=== PATIENT | male | born 1980 | race American Indian/Alaskan Native ===

== ENCOUNTER 2019-01-19 06:48 | Emergency (ER) | payer SELFPAY ==
[2019-01-19 07:01] VITALS: BP 116/74
--- NOTE | 2019-01-19 07:44 | Emergency Department Report ---
Vomiting/Diarrhea - HPI Chief Complaint: Rectal Pain Stated Complaint: HEMORRHOID Time Seen by Provider: 01/19/19 07:15 Duration: 5 Days Severity: mild Nausea/Vomiting Severity: None Diarrhea Severity: None Pain Location: Other Pain Severity: Moderate Symptoms: Yes Able to Tolerate Fluids, No Watery Diarrhea, No Bloody diarrhea, No Fever, No Recent Unusual Foods, No Recent Untreated Water, No Recent use of Antibiotics, No Family w/ Similar Symptoms, No Contacts w/ Similar Symptoms, No Rash, No Hematuria, No Recent URI Symptoms Other History: 38 yo male comes in with rectal itching for over 1 month. no bleeding. no abd pain. pos constipation. no fever. ambulatory and nontoxic on exam. Has used prep H with minimal improvement. ED Review of Systems ROS: Stated complaint: HEMORRHOID Other details as noted in HPI Comment: All other systems reviewed and negative ED Past Medical Hx - Past Medical History Previous Medical History?: No - Surgical History Past Surgical History?: No - Family History Family history: no significant - Social History Smoking Status: Current Every Day Smoker Substance Use Type: Marijuana - Medications Home Medications: Home Medications Medication Instructions Recorded Confirmed Last Taken Type PE/Mo/Pet,Wh [Preparation H] 1 applic MN QID PRN #1 tube 01/19/19 Unknown Rx Phenylephrine HCl/[place] Butter 1 each RC DAILY PRN #30 supp.rect 01/19/19 Unknown Rx [Preparation H Suppository] Vomiting Diarrhea Exam - Exam General: Vital signs noted. No distress. Alert and acting appropriately. HEENT: No Pharyngeal Erythema Neck: No Adenopathy Lungs: Yes Clear Lung Sounds Heart exam: Regular: Yes, Murmur: No, Tachycardia: No Abdomen: Tenderness: No, Peritoneal Signs: No, Distention: No, Hyperactive Bowel sounds: Yes Skin exam: Rash: No Neurologic: Alert and oriented, no deficits. Musculoskeletal: Unremarkable. Exam: small external hemorr. no bleeding. abd snt ED Course Vital Signs 01/19/19 06:53 Temperature 98.0 F Pulse Rate 64 Respiratory 14 Rate Blood Pressure 116/74 O2 Sat by Pulse 98 Oximetry ED Medical Decision Making - Medical Decision Making no bleeding no thrombosed hem. vss educated on care for constipation/hemorrhoids dc home with pcp follow up Vital Signs 01/19/19 06:53 Temperature 98.0 F Pulse Rate 64 Respiratory 14 Rate Blood Pressure 116/74 O2 Sat by Pulse 98 Oximetry - Differential Diagnosis hemorrhoid Critical care attestation.: If time is entered above; I have spent that time in minutes in the direct care of this critically ill patient, excluding procedure time. ED Disposition Clinical Impression: External hemorrhoid, Constipation Disposition: DC-01 TO HOME OR SELFCARE Is pt being admited?: No Does the pt Need Aspirin: No Condition: Stable Instructions: Constipation (ED), Hemorrhoids (ED) Additional Instructions: high fiber diet med as ordered drink a lot of water follow up with Dr Anderson referral below Prescriptions: PE/Mo/Pet,Wh [Preparation H] 1 applic MN QID PRN #1 tube PRN Reason: Pain, Mild (1-3) Phenylephrine HCl/[place] Butter [Preparation H Suppository] 1 each RC DAILY PRN #30 supp.rect PRN Reason: Pain, Moderate (4-6) Referrals: MATEO ANDERSON MD [Staff Physician] - 3-5 Days Time of Disposition: 07:42
== END 2019-01-19 08:08 | disposition home or self-care (01) ==
LOC: ED 06:48
DX: K64.4 Residual hemorrhoidal skin tags (principal); K59.00 Constipation, unspecified; F17.200 Nicotine dependence, unspecified, uncomplicated; F12.10 Cannabis abuse, uncomplicated
CPT/HCPCS: 99282

== ENCOUNTER 2019-05-14 11:39 | Emergency (ER) | payer SELFPAY ==
[2019-05-14 12:17] VITALS: BP 117/60
--- NOTE | 2019-05-14 12:25 | Emergency Department Report ---
Chief Complaint: Dental/Oral Stated Complaint: LFT SIDE TOOTHACHE/PAIN Time Seen by Provider: 05/14/19 12:18 - HPI History of Present Illness: 38 y/o male presents to ED c/o of 2-43 day history of progressively worsening dental pain. Worse with eating and touching. - ROS Review of Systems: All negative except as per HPI - Exam Vital Signs: Vital Signs 05/14/19 12:16 Temperature 98.8 F Pulse Rate 60 Respiratory 18 Rate Blood Pressure 117/60 O2 Sat by Pulse 99 Oximetry Physical Exam: GENERAL APPEARANCE: AxOx4, generally well-appearing Male, no acute distress. HEENT: NC, AT. MMM. EOMI, clear conjunctiva, oropharynx clear. Severe dental erosion and ginival erythema. no abscess. airway patent. no impaction NECK: Supple without lymphadenopathy. No stiffness or restricted ROM. HEART: Normal rate and regular rhythm, LUNGS: no distress or labored respiration. ABDOMEN: Soft, nontender, nondistended with good bowel sounds heard. BACK: No CVAT, no obvious deformity. EXTREMITIES: Without cyanosis, clubbing or edema. NEUROLOGICAL: Grossly nonfocal. Alert and oriented, moving all 4 extremities. CN not formally tested but appear grossly intact. Observed to ambulate with normal gait. Skin: Warm and dry without any rash. MSE screening note: Focused history and physical exam performed. Due to findings the following was ordered: Advised to keep dental appointment on May 31. No obvious infection at current; Patient not immunosuppressed. No e/o tooth fracture, avulsion, or bleeding socket. No e/o RPA, BRICK SETTER, Ludwigs angina, periapical abscess. No e/o gingival hyperplasia or concern for drug reaction. Rx Ibuprofen. Defer ABX for dental pain alone with no evidence of infection. Disposition: Free to be Discharge home. Discussed return precautions for odontogenic infections and other dental pain emergencies. Will provide dental clinic list. ED Disposition for MSE Clinical Impression: Dentalgia Disposition: MED SCREENING EXAM-LEFT Is pt being admited?: No Does the pt Need Aspirin: No Condition: Stable Instructions: Toothache (ED) Referrals: [facility] [Outside] - 3-5 Days
== END 2019-05-14 16:47 | disposition left against medical advice (07) ==
LOC: ED 11:39
DX: K08.89 Other specified disorders of teeth and supporting structures (principal)
CPT/HCPCS: 99281